=== PATIENT | female | born 1960 | race Caucasian/White ===

== ENCOUNTER → 2023-06-02 12:44 | Outpatient (REF) | payer OTHER, SELFPAY | LOC: RAD 12:44 | PROVIDERS: ATTENDING PHYSICIAN Nurse Practitioner; FAMILY PHYSICIAN Family Medicine | DX: N30.10 Interstitial cystitis (chronic) without hematuria (principal) | CPT/HCPCS: 76770; 76856 ==

== ENCOUNTER → 2023-09-13 16:58 | Outpatient (REF) | payer OTHER, SELFPAY | LOC: RAD 16:58 | PROVIDERS: ATTENDING PHYSICIAN Family Medicine | DX: R10.11 Right upper quadrant pain (principal) | CPT/HCPCS: 76700 ==

== ENCOUNTER 2024-04-29 17:07 | Emergency (ER) | payer MEDICARE, SELFPAY ==
[2024-04-29 17:09] VITALS: BP 124/95
[2024-04-29 17:38] LABS: COVID-19 Antigen Positive (Negative)
--- NOTE | 2024-04-29 19:38 | ED.GENMED ---
History of Present Illness
General
Chief Complaint: Cold/Flu/URI Symptoms
Source: patient
Exam Limitations: none
Time Seen by Provider: 04/29/24 18:35
Nursing documentation reviewed up to this point in time: agreed with
History of Present Illness
History of Present Illness:
Pleasant 63-year-old female presents with COVID. She had a home COVID test 3 days ago. She states that she has had some shortness of breath and fevers at home. She states that this has been present for the last 3 days. She has not gotten her
COVID-vaccine. She she has had COVID several times in the past. Patient is a former smoker and currently vapes. 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
Past History
Past History
ED Past Medical History: HTN, Hypercholesterolemia, Hypothyroidism, Other (UTIs/Pyelo) and Other (Opiate abuse on Methadone since 2011)
ED Past Surgical History: Gynecological (total Hysterectomy)
Social History
Tobacco: Former smoker
Alcohol: None
Drug: None
Personal: Single
Living: with family
Employment: Employed
Family History
Family History: Other (Noncontributory)
Review of Systems
Review of Systems
Allergies reviewed?: Yes
All Other Systems: ROS reviewed and negative except as documented in HPI and ROS
Constitutional: Reports fever
EENT: Reports no symptoms
Respiratory: Reports cough
Cardiac: Denies chest pain or palpitations
ABD/GI: Reports no symptoms
: Reports no symptoms
Musculoskeletal: Reports no symptoms
Skin: Reports no symptoms
Neurological: Reports no symptoms
Endocrine: Reports no symptoms
Hematologic/Lymphatic: Reports no symptoms
Psychiatric: Reports no symptoms
Phy Exam
General Physical Exam
General Presentation: well appearing and mild distress
General age: appears stated age
General Skin: warm and dry
General Habitus: normal
General Mental: alert
General Hydration: appears well hydrated
ENT Exam
ENT Exam: EOMI, pharynx normal, neck supple and normocephalic
Eye Exam
Eye Exam: PERRL, cornea clear and conjunctiva normal
Cardiovascular Exam
Cardiovascular Exam: regular rate/rhythm, no edema, no murmur and normal peripheral pulses
Pulmonary Exam
Pulmonary Exam: lungs clear, no respiratory distress, no rales, no crackles, no rhonchi, no stridor, no wheezing and no cough
Gastrointestinal Exam
Gastrointestinal Exam: normal bowel sounds, non tender, soft, no organomegaly, no pulsatile mass and non distended
Neurological Exam
Neurological Exam: alert, oriented x3, no motor deficits and speech normal
Musculoskeletal Exam
Musculoskeletal Exam: full ROM and no edema
Skin Exam
Skin Exam: normal color, warm/dry, no rash and no petechia
Psychiatric Exam
Psychiatric Exam: normal mood/affect
Course
Orders/Labs/Results
Orders:
Orders
04/29/24 17:12
CR Chest - 2 Views Urgent
Comment:
Reason For Exam: cough
04/29/24 17:18
COVID-19 Antigen Urgent
Source: Nasal Swab
04/29/24 19:48
Albuterol [ProAIR HFA INHALER] 1 puff INH R NOW STA
Abnormal Lab Results
04/29/24
17:18
SARS-CoV-2 Antigen Positive A
(Negative)
04/29/24 17:12
04/29/24 17:12
Vital Signs
Initial and Last Documented VS:
Initial Vital Signs
Temp Pulse Resp BP Pulse Ox
99.3 F 93 20 124/95 99
04/29/24 17:09 04/29/24 17:09 04/29/24 17:09 04/29/24 17:09 04/29/24 17:09
Last Documented Vital Signs
Temp Pulse Resp BP Pulse Ox
99.3 F 93 20 124/95 99
04/29/24 17:09 04/29/24 17:09 04/29/24 17:09 04/29/24 17:09 04/29/24 17:09
*Critical Care Note
Total Time (30-74mins, 75-104mins- exclusive of procedures): Not Applicable
ED Attending Note
-
Portions of this chart may have been created with voice recognition software.� Occasional wrong word or��sound alike� substitutions may have occurred due to the inherent limitations of voice recognition software.
Discharge Plan
Departure
Patient Disposition: Home (Routine Discharge)
Date of Disposition: 04/29/24
Time of Disposition: 19:57
Patient with high blood pressure during this ER visit?: No
Covid-19: Confirmed COVID-19
Discharge Problem:
COVID-19
Instructions: Fever, Adult (DC), Coronavirus Home Quarantine, BLOOD PRESSURE
Prescriptions:
No Action
metaxalone [Skelaxin] 800 MG tablet
800 mg PO TIDPRN PRN (Reason: spasm pain) Qty: 15 0RF
Amlodipine
2.5 mg PO DAILY
Synthroid
50 mcg PO DAILY
docusate sodium 50 mg capsule
50 mg PO DAILY Qty: 7 0RF
polyethylene glycol 3350 [Miralax] 17 gram/dose powder
4 g PO DAILY Qty: 119 0RF
metoprolol succinate [Toprol XL] 25 mg tablet extended release 24 hr
25 mg PO DAILY Qty: 30 0RF
Referrals:
Bello Joseph DO [Family Provider] -
Activity Restrictions/Additional Instructions:
It was a pleasure meeting you and taking part in your care. We hope for your continued healing and wellness.
Please read discharge instructions in their entirety. However, they are for general education and may not describe your exact diagnosis at discharge. Information on your ER visit and medical conditions were discussed with you along with appropriate
follow up information...
If indicated, please take your medications as instructed and indicated on discharge paperwork.
Please schedule a follow up appointment as directed. Call to schedule an appointment
Please return to the emergency department with ANY change in, persisting, or worsening of symptoms. If any of your symptoms do not improve, or persist, or become more severe within 6-12 hours, please return to the emergency department for further
care.
Please return to the emergency department if you develop a headache, neck pain/stiffness, fever greater than 100.4F, chest pain, shortness of breath, persistent nausea, vomiting, slurred speech, difficulty walking, numbness/tingling, weakness, signs
of infection or any other symptoms that are worrisome to you.
If you have any questions or concerns please do not hesitate to call the Hospital at or E-mail me directly at [email or web address]
Interventions
Interventions:
*Risk Screen - Suicide Last Done: 04/29/24 18:43
*General Assessment Last Done: 04/29/24 17:09
*Neglect/Abuse Screening Last Done: 04/29/24 18:43
ED- Fall Risk Assessment Last Done: 04/29/24 18:43
*ED COVID-19 Vaccine History Last Done: 04/29/24 18:43
ED- Pulmonary Assessment Last Done: 04/29/24 18:43
Discharge Date and Time
Print Language: [id number]
[2024-04-29] MEDS: TYLENOL 650 MG PO (20:40)
[2024-04-29] MEDS: ProAIR HFA INHALER 1 PUFF INH (20:43)
== END 2024-04-29 20:47 | disposition home or self-care (01) ==
LOC: EMR 17:07
PROVIDERS: Emergency Medicine; EMERGENCY PHYSICIAN Student in an Organized Health Care Education/Training Program; FAMILY PHYSICIAN Family Medicine
DX: U07.1 COVID-19 (principal); Z11.52 Encounter for screening for COVID-19; Z87.891 Personal history of nicotine dependence
CPT/HCPCS: 99284; 94640; 71046; 87811

== ENCOUNTER → 2024-06-22 11:07 | Outpatient (REF) | payer MEDICARE, SELFPAY | LOC: RAD 11:07 | PROVIDERS: ATTENDING PHYSICIAN Family Medicine | DX: S09.90XA Unspecified injury of head, initial encounter (principal); M25.362 Other instability, left knee | CPT/HCPCS: 70450; 73564 ==

== ENCOUNTER → 2024-08-12 13:31 | Outpatient (REF) | payer MEDICARE, SELFPAY | LOC: MRI 3T 13:31 | PROVIDERS: ATTENDING PHYSICIAN Physician Assistant; FAMILY PHYSICIAN Family Medicine | DX: M25.562 Pain in left knee (principal) | CPT/HCPCS: 73721 ==